=== PATIENT | male | born 1985 | race American Indian/Alaskan Native ===

== ENCOUNTER 2018-01-27 10:41 | Day surgery (SDC) | payer BC ==
[~2018-01-27 10:41] MED LIST: ANCEF/STERILE WATER 2 GM/20 ML 2 GM/20 ML SYRINGE IV SCH; MARCAINE 0.25% INFILTRATI ONE; MARCAINE 0.5% 0 ML INFILTRATI ONE; XYLOCAINE 1% 20 mL ONE; XYLOCAINE 1%/ EPI 1:100,000 INFILTRATI ONE; ceFAZolin 2 GM in NACL 0.9% 100 ML IV SCH
[2018-01-27 11:19] VITALS: BP 142/90
[2018-01-27] MEDS ORDERED: MARCAINE 0.25% INFILTRATI ONE ×2 (11:46)
[2018-01-27] MEDS ORDERED: XYLOCAINE 1%/ EPI 1:100,000 INFILTRATI ONE ×2 (11:46)
--- NOTE | 2018-01-27 13:49 | Operative Report ---
Operative Report Operative Report: Date of procedure: 01/27/18 Pre-op diagnosis: right axillary cyst Post-op diagnosis: same Findings: 4cm cyst with brown fluid Procedure: excision of right axillary cyst Anesthesia: local Surgeon: NEHA JAMISON Estimated blood loss: minimal Pathology: list (cyst right axilla) Specimen disposition: to lab Condition: stable Disposition: same day HPI and Indication: 32 yo M with no PMHx presents for elective procedure. The patient was seen in the surgery office for c/o cyst in right axilla which was painful, tender, and draining brown fluid. He was on abx. He was scheduled for excision of cyst of right axilla. All risks, benefits, alternatives were discussed and questions answered. Consent was signed. The patient refused any form of anesthesia except local anesthetic. Procedure in detail: The patient was identified in the preoperative area and taken to the minor procedure room. He was place in supine position with right arm over his head. The right axillary hair was clipped and area prepped and draped in the usual sterile fashion. A time out was performed. The area at the intended incision was anesthetized with a 50/50 mixture of 1% lidocaine with epinephrine and 0.25% marcaine. An eliptical incision was made in the skin around the central pore of the cyst using a 15 blade. The dissection was carried down through the skin and subcutaneous tissue using bovie electrocautery and the cyst was dissected circumfrentially using a hemostat. The cyst was excised from the underlying healthy subcutaneous tissue using electrocautery. Hemostasis was achieved along the way. The cyst was removed in its entirety and passed off the table as a specimen. The wound was irrigated and hemostasis carefully achieved with electrocautery. The skin was approximated using horizontal mattress sutures with 2-0 nylon. The incision was covered with telfa, 4x4 gauze, and medipore tape. At the end of the case, all sponge, instrument, and sharp counts were correct x2. The patient tolerated the procedure well and was discharged in stable condition.
== END 2018-01-27 12:15 | disposition home or self-care (01) ==
LOC: OR 10:41
PROVIDERS: ATTEND Surgery
DX: L72.3 Sebaceous cyst (principal)
CPT/HCPCS: 88304